=== PATIENT | male | born 1975 | race Caucasian/White ===

== ENCOUNTER → 2017-07-06 | Day surgery (SDC) | payer OTHER ==
[~2017-07-06] MED LIST: PROPOFOL 200 MG/20 ML AMP IV ONE
--- NOTE | 2017-07-06 13:51 | GIPROC ---
[facility] [address] [facility], [address] EGD PROCEDURE REPORT EXAM DATE: 07/06/2017 PATIENT NAME: Roly Burns MR #: [id number] BIRTHDATE: 1975 ATTENDING: Trish Willoughby MD ORDER #: [id number] SMOKING TOBACCO PACKER HAND: Natalie Marie DENTAL SCHEDULER STATUS: outpatient INDICATIONS: The patient is a 42 yr old male here for an EGD due to history of esophageal reflux and abdominal pain in the right upper quadrant PROCEDURE PERFORMED: EGD w/ biopsy MEDICATIONS: None and Per Anesthesia. TOPICAL ANESTHETIC: CONSENT: The patient understands the risks and benefits of the procedure and understands that these risks include, but are not limited to: sedation, allergic reaction, infection, perforation and/or bleeding. Alternative means of evaluation and treatment include, among others: physical exam, x-rays, and/or surgical intervention. The patient elects to proceed with this endoscopic procedure. medical equipment was checked for proper function. Hand hygiene and appropriate measures for infection prevention was taken. After the risks, benefits and alternatives of the procedure were thoroughly explained, Informed consent was verified, confirmed and timeout was successfully executed by the treatment team. The patient was anesthetized with topical anesthesia and the EG-2990i ([id number]) endoscope was introduced through the mouth and advanced to the stomach antrum. Retroflexed views revealed no abnormalities The gastroscope was then slowly withdrawn and removed. ESOPHAGUS: There was LA Class B esophagitis noted. A biopsy was performed using cold forceps. Sample sent for histology. STOMACH: There was a large amount of residual food seen in the gastric antrum. Due to the residual food, complete mucosal examination could not be performed. Based on this, I suspect the patient has some level of gastroparesis. ADVERSE EVENTS: There were no complications. IMPRESSIONS: 1. There was LA Class B esophagitis noted; biopsy was performed 2. Food residue in the gastric antrum 3. Retroflexed views revealed no abnormalities RECOMMENDATIONS: 1. Await biopsy results. Biopsy results will not be ready for 7-10 days. If you don't hear from us in two weeks, call our office for biopsy results. 2. Continue PPI 3. Xray: Gastric Emptying Scan PATIENT CONDITION: stable DISPOSITION: Home REPEAT EXAM: Return 8 weeks EGD Trish Willoughby MD eSigned: Trish Willoughby MD 07/06/2017 1:50 PM cc: N[facility] M[facility] PATIENT NAME: Roly Burns MR#: [id number]
== END | disposition home or self-care (01) ==
LOC: ESDC 12:11
PROVIDERS: ATTEND Internal Medicine Gastroenterology
DX: K21.9 Gastro-esophageal reflux disease without esophagitis (principal); R10.11 Right upper quadrant pain; K20.9 Esophagitis, unspecified; E11.9 Type 2 diabetes mellitus without complications; Z79.4 Long term (current) use of insulin
CPT/HCPCS: 00740; 43239; 82948; 88305; J3010

== ENCOUNTER → 2017-10-28 | Day surgery (SDC) | payer OTHER ==
--- NOTE | 2017-10-28 13:16 | GIPROC ---
[facility] [address] [facility], [address] EGD PROCEDURE REPORT EXAM DATE: 10/28/2017 PATIENT NAME: Roly Burns MR #: [id number] BIRTHDATE: 1975 ATTENDING: Trish Willoughby MD ORDER #: [id number] PAVING BED MAKER: Jaime Benson RN STATUS: outpatient INDICATIONS: The patient is a 42 yr old male here for an EGD due to history of esophageal reflux and epigastric abdominal pain PROCEDURE PERFORMED: EGD w/ biopsy MEDICATIONS: None and Per Anesthesia. TOPICAL ANESTHETIC: CONSENT: The patient understands the risks and benefits of the procedure and understands that these risks include, but are not limited to: sedation, allergic reaction, infection, perforation and/or bleeding. Alternative means of evaluation and treatment include, among others: physical exam, x-rays, and/or surgical intervention. The patient elects to proceed with this endoscopic procedure. medical equipment was checked for proper function. Hand hygiene and appropriate measures for infection prevention was taken. After the risks, benefits and alternatives of the procedure were thoroughly explained, Informed consent was verified, confirmed and timeout was successfully executed by the treatment team. The patient was anesthetized with topical anesthesia and the EC-2990i ([id number]) endoscope was introduced through the mouth and advanced to the second portion of the duodenum. Retroflexed views revealed no abnormalities The gastroscope was then slowly withdrawn and removed. ESOPHAGUS: There was LA Class A esophagitis noted. A biopsy was performed using cold forceps. Sample sent for histology. STOMACH: There was erythematous moderate gastritis in the gastric antrum. A biopsy was performed using cold forceps. Sample sent for histology. DUODENUM: The duodenal mucosa appeared normal in the bulb and second portion of the duodenum. ADVERSE EVENTS: There were no complications. IMPRESSIONS: 1. There was LA Class A esophagitis noted; biopsy was performed 2. There was erythematous gastritis in the gastric antrum; biopsy was performed 3. Normal duodenal mucosa in the bulb and second portion of the duodenum 4. Retroflexed views revealed no abnormalities RECOMMENDATIONS: 1. Await biopsy results. Biopsy results will not be ready for 7-10 days. If you don't hear from us in two weeks, call our office for biopsy results. 2. Anti-reflux regimen 3. Continue PPI 4. Avoid NSAIDS PATIENT CONDITION: stable DISPOSITION: Home REPEAT EXAM: Return 1 year EGD pending biopsy results Trish Willoughby MD eSigned: Trish Willoughby MD 10/28/2017 1:16 PM cc: [facility] PATIENT NAME: Roly Burns MR#: [id number]
== END | disposition home or self-care (01) ==
LOC: ESDC 11:42
PROVIDERS: ATTEND Internal Medicine Gastroenterology
DX: K21.9 Gastro-esophageal reflux disease without esophagitis (principal); R10.13 Epigastric pain; K20.9 Esophagitis, unspecified; K29.70 Gastritis, unspecified, without bleeding
CPT/HCPCS: 00740; 43239; 88305; 88312; J3010